=== PATIENT | female | born 1940 | race Caucasian/White ===

== ENCOUNTER 2022-09-04 01:41 | Observation (INO) | payer MEDICARE ==
[2022-09-04 02:09] VITALS: BMI 21.1
[2022-09-04] MEDS ORDERED: HYDROmorphone 2 MG/ML VIAL SLOW IVP PRN (02:23)
[2022-09-04] MEDS ORDERED: Ondansetron ODT 4 MG TAB SL PRN (02:30)
[2022-09-04] MEDS ORDERED: Ondansetron PF 4 MG/2 ML Vial IVP PRN ×2 (02:30→04:23)
[2022-09-04] MEDS ORDERED: Promethazine HCl 12.5 MG in Sodium Chloride 0.9% 50 ML IVPB SCH (03:00)
[2022-09-04] MEDS ORDERED: Morphine 4 MG/ML VIAL SLOW IVP PRN (03:03)
[2022-09-04] MEDS ORDERED: HYDROcodone/Acetaminophen 7.5/325 mg Tablet PO PRN (03:03)
[2022-09-04] MEDS ORDERED: Ondansetron ODT 4 MG TAB PO PRN (04:24)
[2022-09-04] MEDS ORDERED: Nicotine 7 MG PATCH TD PRN (04:27)
[2022-09-04 05:24] LABS: #Basophils 0.1 thou/uL (0.0-0.2); #Lymphocytes 0.7 thou/uL (1.20-3.40); #Monocytes 0.5 thou/uL (0.11-0.59); #Neutrophils 8.5 thou/uL (1.40-6.50); %Basophils 0.6 % (0.0-1.0); %Eosinophils 0.1 % (0.0-10.0); %Lymphocytes 6.9 % (21.0-51.0); %Monocytes 5.1 % (0.0-10.0); %Neutrophils 87.4 % (42.0-75.0); Hemoglobin 10.8 g/dL (12.0-16.0); Mean Corpuscular HGB CONC 32.5 g/dL (32.0-36.0); Mean Corpuscular Hemoglobin 32.8 pg (27.0-31.0); Platelet Count 188 10x3/uL (130-400); RBC Distribution Width 11.4 % (11.5-14.5); Red Blood Cell (RBC) Count 3.29 mill/uL (4.20-5.40); White Blood Cell (WBC) Count 9.7 10x3/uL (4.8-10.8)
[2022-09-04 05:58] LABS: Anion Gap 9 mmol/L (10-20); BUN (Urea Nitrogen) 14 mg/dL (9.8-20.1); Calc. Creatinine Clearance 53 mL/min (70-130); Calcium 8.7 mg/dL (7.8-10.44); Carbon Dioxide 30 mmol/L (23-31); Chloride 102 mmol/L (98-107); Estimated GFR 79; Glucose 133 mg/dL (83-110); Potassium 4.3 mmol/L (3.5-5.1); Sodium 137 mmol/L (136-145)
[2022-09-04 06:08] LABS: SARS-CoV-2 NAA Rapid Test Not Detected (NotDetected)
[2022-09-04] MEDS ORDERED: Enoxaparin Sodium 40 MG/0.4 ML SYRINGE SC SCH (09:00)
[2022-09-04] MEDS ORDERED: Zolpidem Tartrate 5 MG TAB PO PRN (12:14)
[2022-09-04] MEDS ORDERED: Ibuprofen 200 MG TAB PO PRN (12:20)
[2022-09-04] MEDS: Acetaminophen 325 MG TAB PO SCH ×2 (15:54→20:07)
[2022-09-04] MEDS: Lidocaine 5% Patch TD SCH (16:12)
[2022-09-04] MEDS: traMADol HCl 50 MG TAB PO PRN ×2 (16:12→22:08)
[2022-09-04] MEDS: Heparin 5,000 UNITS/ML VIAL SC SCH (20:07)
[2022-09-04] MEDS ORDERED: Zolpidem Tartrate 5 MG TAB PO SCH (21:00)
[2022-09-04] MEDS ORDERED: Docusate 100 MG CAP PO PRN (21:29)
[2022-09-05] MEDS ORDERED: LIDOCAINE Patch Removal TOP SCH (01:00)
[2022-09-05] MEDS: Acetaminophen 325 MG TAB PO PRN ×2 (02:09→12:30)
[2022-09-05] MEDS: traMADol HCl 50 MG TAB PO PRN (05:06)
[2022-09-05 05:28] LABS: #Eosinphils 0.2 thou/uL (0.0-0.7); #Lymphocytes 2.5 thou/uL (1.20-3.40); #Monocytes 0.8 thou/uL (0.11-0.59); #Neutrophils 3.3 thou/uL (1.40-6.50); %Basophils 0.5 % (0.0-1.0); %Lymphocytes 36.8 % (21.0-51.0); %Monocytes 11.4 % (0.0-10.0); %Neutrophils 48.4 % (42.0-75.0); Hemoglobin 10.2 g/dL (12.0-16.0); Mean Corpuscular HGB CONC 31.2 g/dL (32.0-36.0); Mean Platelet Volume 8.2 fL (7.4-10.4); Platelet Count 185 10x3/uL (130-400); RBC Distribution Width 11.6 % (11.5-14.5); Red Blood Cell (RBC) Count 3.19 mill/uL (4.20-5.40); White Blood Cell (WBC) Count 6.8 10x3/uL (4.8-10.8)
[2022-09-05 06:11] LABS: Anion Gap 11 mmol/L (10-20); BUN (Urea Nitrogen) 18 mg/dL (9.8-20.1); Calc. Creatinine Clearance 49 mL/min (70-130); Calcium 8.2 mg/dL (7.8-10.44); Carbon Dioxide 28 mmol/L (23-31); Chloride 105 mmol/L (98-107); Estimated GFR 72; Glucose 91 mg/dL (83-110); Potassium 4.2 mmol/L (3.5-5.1); Sodium 140 mmol/L (136-145)
[2022-09-05] MEDS: Acetaminophen 325 MG TAB PO SCH ×3 (08:12→21:30)
[2022-09-05] MEDS: Heparin 5,000 UNITS/ML VIAL SC SCH ×2 (08:13→21:30)
[2022-09-05] MEDS ORDERED: Multivit, Therapeutic 1 TAB PO SCH (09:00)
[2022-09-05] MEDS ORDERED: Cyanocobalamin (Vitamin B-12) 1,000 MCG TAB PO SCH (09:00)
[2022-09-05] MEDS: Lidocaine 5% Patch TD SCH (12:30)
[2022-09-05] MEDS ORDERED: Docusate 100 MG CAP PO SCH ×2 (13:45→21:00)
[2022-09-05] MEDS ORDERED: Polyethylene Glycol 3350 17 GM Packet PO PRN (13:45)
[2022-09-05 21:23] VITALS: BP 131/57; TEMP 98.3
== END 2022-09-05 23:20 ==
LOC: SURG A 01:41
PROVIDERS: ADMIT Internal Medicine; ATTEND Internal Medicine
DX: S76.112A Strain of left quadriceps muscle, fascia and tendon, initial encounter (principal); S83.232A Complex tear of medial meniscus, current injury, left knee, initial encounter; M23.022 Cystic meniscus, posterior horn of medial meniscus, left knee; S83.512A Sprain of anterior cruciate ligament of left knee, initial encounter; M25.562 Pain in left knee; M17.12 Unilateral primary osteoarthritis, left knee; M81.0 Age-related osteoporosis without current pathological fracture; I48.0 Paroxysmal atrial fibrillation; F51.04 Psychophysiologic insomnia; F17.290 Nicotine dependence, other tobacco product, uncomplicated; D53.9 Nutritional anemia, unspecified; N18.2 Chronic kidney disease, stage 2 (mild); Z85.3 Personal history of malignant neoplasm of breast; Z85.42 Personal history of malignant neoplasm of other parts of uterus; Z79.899 Other long term (current) drug therapy; Z88.2 Allergy status to sulfonamides; Z88.5 Allergy status to narcotic agent; Z88.8 Allergy status to other drugs, medicaments and biological substances; Z91.018 Allergy to other foods; Z20.822 Contact with and (suspected) exposure to COVID-19; X50.0XXA Overexertion from strenuous movement or load, initial encounter
CPT/HCPCS: 73721; 80048 ×2; 83735; 85025 ×2; 97116; U0002; 36415; 96372; 96374; G0378; J1644; J2550

== ENCOUNTER 2022-11-05 13:34 | Outpatient (CLI) | payer MEDICARE | END 2022-11-05 13:35 | disposition home or self-care (01) | LOC: RAD 13:34 | PROVIDERS: ATTEND Internal Medicine Critical Care Medicine | DX: R06.00 Dyspnea, unspecified (principal) | CPT/HCPCS: 71046 ==

== ENCOUNTER 2024-09-01 10:37 | Outpatient (CLI) | payer MEDICARE, OTHER | END 2024-09-01 10:38 | disposition home or self-care (01) | LOC: RAD 10:37 | PROVIDERS: ATTEND Internal Medicine Critical Care Medicine | DX: R06.00 Dyspnea, unspecified (principal) | CPT/HCPCS: 71046 ==